=== PATIENT | female | born 1955 | race Caucasian/White ===

== ENCOUNTER 2021-04-15 19:18 | Emergency (ER) | payer OTHER, SELFPAY ==
[2021-04-15 19:22] VITALS: BP 137/56; PULSE 89; RESP 18; TEMP 36.4; O2SAT 99
--- NOTE | 2021-04-15 19:26 | DI.RAD.S_ITS ---
PROCEDURE: XR WRIST RT MIN 3V INDICATIONS: fall TECHNIQUE: 3 views of the wrist were acquired. COMPARISON: None. FINDINGS: Bones: Diffuse osteopenia. There is a mildly impacted and comminuted intra-articular fracture of the right distal radius. There is a mildly displaced fracture of the distal ulnar styloid process. Overlying soft tissue edema. Scapholunate interval appears to be maintained. Background degenerative changes of the right wrist. Soft tissues: No suspicious soft tissue calcifications. IMPRESSION: Mildly impacted and comminuted intra-articular fracture of the distal right radius. Mildly displaced distal ulnar styloid process fracture. Dictated by: Thomas Wright M.D. on 04/15/2021 at 19:37 Approved by: Thomas Wright M.D. on 04/15/2021 at 19:38
--- NOTE | 2021-04-15 22:24 | ED.UPPEXIN ---
HPI - Extremity Injury (Upper) General Chief Complaint: Extremity Injury, Upper Stated Complaint: right wrist injury/fell on it hiking Time Seen by Provider: 04/15/21 22:22 Source: patient Mode of arrival: Ambulatory Limitations: no limitations History of Present Illness HPI narrative: This is a 65-year-old female who states she fell on outstretched hand right hand while hiking earlier today. She has pain at the wrist. Patient denies any tingling or numbness. She does have a ring on 4th finger. Patient denies any other injuries. She did have some mild pain in her right shoulder. Patient takes medication for osteoporosis and citalopram. She denies any other major medical issues. No allergies to medications. Patient [place] of [place]. They are visiting the area and staying on [place] currently. Related Data Previous Rx's Medication Instructions Recorded hydrocodone 5 mg-acetaminophen 325 1 tab PO Q6H PRN #14 tab 04/15/21 mg tablet Allergies Allergy/AdvReac Type Severity Reaction Status Date / Time No Known Drug Allergies Allergy Verified 04/16/21 00:16 Review of Systems Review of Systems ROS Unobtainable: All systems reviewed & are unremarkable except as noted in HPI and below Exam Narrative Exam Narrative: GEN: Patient appears in mild distress. Patient is sitting up on the edge of the bed with her wrist splinted from outside inspector automatic typewriter's. HEAD: No evidence of trauma, no raccoon/Gutierrez sign. NECK: Nontender, painless range of motion, trachea midline Negative Nexus criteria, there is no mid line tenderness, distracting injury, altered mental status, neuro deficit, recent EtOH. EYES: PERRLA, EOMI ENT: External inspection normal, trachea is midline, no dental or oral injury, airway is normal and with normal occlusion, No bony tenderness RESP: Chest is nontender and has symmetric movement, no ecchymosis, breath sounds are normal no crackles, wheezes or rales CVS: Heart sounds are normal, no murmur noted, No JVD. ABG/GI: Nontender, soft, normal bowel sounds, no distention, no organomegaly. NEURO: Oriented AOx3, neuro is grossly intact, sensation and motor is normal all 4 extremities moving, cranial nerves II through XII are intact, GCS is 15 PSYCH: Normal mood and affect SKIN: Intact, warm and dry, no crepitus and without decubitus BACK: No CVA tenderness, no vertebral tenderness, no step-off's, no crepitus EXT: Patient has ecchymosis and mild deformity of her right wrist. She has some mild swelling for fingers. She does have a ring on her 4th finger which was removed. Patient has full range of motion of her fingers. Sensation to light touch in all 5 fingers. 2+ radial pulse. Cap refill less than 2 seconds in all 5 fingers. Patient is nontender in the rest of her right upper extremity. Other extremities are nontender, no pedal edema, normal color and temperature, normal range of motion of extremities with normal tendon exam, 2+ pulses in all four extremities Initial Vital Signs Initial Vital Signs: Vital Signs Temperature 97.5 F L 04/15/21 19:22 Pulse Rate 89 04/15/21 19:22 Respiratory Rate 18 04/15/21 19:22 Blood Pressure 137/56 L 04/15/21 19:22 Pulse Oximetry 99 04/15/21 19:22 Procedures Orthopedic Splinting/Casting Injury #1: Side: right Upper Extremity Injury Location: wrist Upper Extremity Immobilizer: sugar tong splint Post splinting neuro exam: intact Post splinting vascular exam: intact Placed by: Provider Additional Comments: Patient give her work sent for hematoma block. The area was prepped with chlorhexidine. Syringe with a 23 gauge needle was inserted, aspirated without blood and 3 cc of lidocaine without epinephrine was injected at the fracture site for a hematoma block for immobilization and traction. Patient NVI afterwards. Course Orders Ordered: Discontinued Medications Hydrocodone Bitart/Acetaminophen (Hydrocodone/Acet 5/325 Tablet) 2 tab PO NOW ONE Stop: 04/15/21 22:37 Last Admin: 04/15/21 22:50 Dose: 2 tab Documented by: MATTHEW Hydrocodone Bitart/Acetaminophen (Hydrocodone/Acet 5/325 Prepack) 1 bottle MISC SEEINSTR ONE Stop: 04/15/21 23:45 Last Admin: 04/15/21 23:47 Dose: 1 bottle Documented by: CARRINGTON Lidocaine HCl (Lidocaine Viscous 2% 15 Ml Solution) 15 ml PO NOW ONE Stop: 04/15/21 22:49 Last Admin: 04/15/21 22:55 Dose: Not Given Documented by: MATTHEW Lidocaine/Sodium Bicarbonate (Lido 1%/Sod Bicarb 8.4% (10ml) 10 Ml Syringe) 10 ml INJ NOW ONE Stop: 04/15/21 22:37 Last Admin: 04/15/21 22:50 Dose: 10 ml Documented by: MATTHEW Vital Signs Vital signs: Vital Signs - 8 hr 04/15/21 23:52 Pulse Rate 87 Respiratory Rate 18 Blood Pressure 129/62 Pulse Oximetry 95 MDM - Extremity Injury (Upper) Imaging Data Extremity x-ray #1: Radiologist's Impression: Launch?[address] [address] XRay Report Signed Patient: Aixa Metcalf MR#: [id number] : 1955 Acct:[id number] Age/Sex: 65 / F Date of Service: 04/15/21 Loc: ED Accession Number: [id number] ?? Procedure: XR wrist RT min 3V Ordering Provider: Yolie Rizvi D.O. PROCEDURE:? XR WRIST RT MIN 3V ? INDICATIONS: fall ? TECHNIQUE:? 3 views of the wrist were acquired.? ? COMPARISON:? None. ? FINDINGS:? ? Bones:? Diffuse osteopenia.? There is a mildly impacted and comminuted intra-articular fracture of the right distal radius.? There is a mildly displaced fracture of the distal ulnar styloid process.? Overlying soft tissue edema.? Scapholunate interval appears to be maintained.? Background degenerative changes of the right wrist. ? Soft tissues:? No suspicious soft tissue calcifications.? ? IMPRESSION:? ? Mildly impacted and comminuted intra-articular fracture of the distal right radius. ? Mildly displaced distal ulnar styloid process fracture.? ? Dictated by: Thomas Wright M.D. on 04/15/2021 at 19:37 ? ? Approved by: Thomas Wright M.D. on 04/15/2021 at 19:38?? [facility] Narrative Medical decision making narrative: This is a 65-year-old female with right wrist fracture who is neurovascularly intact. Patient was placed in sugar-tong splint. After hematoma block in order to better splint the patient for pain control as well as moderate traction. Patient tolerated procedure well. She was given a disc as they do not live locally. And discussed that she can contact primary care for referral to local orthopedic surgery but also given a referral for our orthopedic service here if she has difficulty with follow-up. Discharge Plan Departure Patient Disposition: Home Clinical Impression: Fracture of wrist Instructions: DI for Wrist Fracture Activity Restrictions/Additional Instructions: Follow-up with orthopedic surgery. Include is referral for a local orthopedic surgeon but if you prefer your primary care or insurance company can help direct you to a local orthopedic surgeon where you live. Call in the morning for an appointment. I do recommend a follow-up in the next week. You may take Tylenol up to a 1000 mg every 8 hours as needed for pain. If this is an adequate you may take narcotic pain medication. QuanDx does have Tylenol in it. Here total amount of Tylenol in 24 hours should be 3000 mg. This medication can make you sleepy do not drive, perform hazardous activities or make any major decisions while taking it. This medication will make you constipated please take a stool softener once to twice daily until stools are soft and regular. Prescription sent to [facility]. Splint Care: Keep splint clean and dry. Elevated affected body part to decrease swelling. OK to use ice pack on the affected body part. Use for 15-20 minutes each time, for 5-6x per day. If you develop worsening pain, numbness, tingling, discoloration of the affected body part, loosen the splint by loosening the HAMIDA wrap, and either see your doctor for an urgent re-assessment, or return to the Emergency Department. Return to the Emergency Department for any new or worsening symptoms. Prescriptions: New hydrocodone-acetaminophen 5-325 mg tablet 1 tab PO Q6H PRN (Reason: pain) Qty: 14 RF: 0 Referrals: Roby Baeza MD [Physician] -
[2021-04-15] MEDS: HYDROCODONE/ACET 5/325 TABLET 2 TAB PO (22:50)
[2021-04-15] MEDS: LIDO 1%/SOD BICARB 8.4% (10ML) 10 ML SYRINGE INJ (22:50)
[2021-04-15] MEDS: HYDROCODONE/ACET 5/325 PREPACK 1 BOTTLE MISC (23:47)
[2021-04-15 23:52] VITALS: BP 129/62; PULSE 87; RESP 18; O2SAT 95
== END 2021-04-15 23:54 | disposition home or self-care (01) ==
PROVIDERS: Emergency Provider Emergency Medicine
DX: S62.101A Fracture of unspecified carpal bone, right wrist, initial encounter for closed fracture (principal); W19.XXXA Unspecified fall, initial encounter
CPT/HCPCS: 29125; 73110; 99283; 99284